=== PATIENT | female | born 1945 | race Caucasian/White ===

== ENCOUNTER 2017-02-23 14:09 | Inpatient (IN) | payer MEDICARE, OTHER ==
[~2017-02-23] VITALS: Ht 162.6 cm; Wt 97.7 kg
[2017-02-24] MEDS ORDERED: HYDR-3583 PO (11:07)
[2017-02-24] MEDS ORDERED: GLUC500C5 PO (11:07)
[2017-02-24] MEDS ORDERED: VITA10003 PO (11:07)
[2017-02-24] MEDS ORDERED: ASPI1TAB69 PO (11:07)
[2017-02-24] MEDS ORDERED: TIOT1AER INH (11:07)
[2017-02-24] MEDS ORDERED: MONT10TA4 PO (11:07)
[2017-02-24] MEDS ORDERED: DILT120T PO (11:07)
[2017-02-24] MEDS ORDERED: ZOLP10TA3 PO (11:07)
[2017-02-24] MEDS ORDERED: VENL75TA PO (11:07)
[2017-02-24] MEDS ORDERED: CLON0.5T PO (11:07)
[2017-02-24] MEDS ORDERED: GLIP-157 PO (11:07)
[2017-02-24] MEDS ORDERED: FOLI400T PO (11:07)
[2017-02-24] MEDS ORDERED: ATOR40TA16 PO (11:07)
[2017-02-24] MEDS ORDERED: CALCTAB54 PO (11:07)
[2017-02-24] MEDS ORDERED: LOSA100T PO (11:07)
[2017-02-24] MEDS ORDERED: OXYB5TAB10 PO (11:07)
[2017-03-03] MEDS ORDERED: LACTATED RINGER'S 1000 ML IV PRN (11:45)
[2017-03-03] MEDS ORDERED: INSULIN HUMAN REGULAR 1,000 UNITS/10 ML VIAL SQ PRN (11:45)
[2017-03-03] MEDS ORDERED: CHLORHEXIDINE GLUCONATE 2 % 1 PACK (2 CLOTHS) TOPICAL PRN (11:45)
[2017-03-03] MEDS ORDERED: POVIDONE IODINE 5% (ANTISEPSIS KIT) 4 APPLICATIONS EACH NARE PRN (11:45)
[2017-03-03] MEDS ORDERED: SODIUM CHLORID 0.9% 500 ML IV PRN (11:45)
[2017-03-03] MEDS ORDERED: METOPROLOL TARTRATE 25 MG TAB PO PRN (11:45)
[2017-03-03] MEDS ORDERED: NORMOSOL R INJ 2,000 ML IV ONE (12:00)
[2017-03-03] MEDS ORDERED: NITROGLYCERIN 1000 MCG/5 ML VIAL IV ONE (12:00)
[2017-03-03] MEDS ORDERED: fentaNYL CITRATE 250 MCG/5 ML AMP IV ONE (12:00)
[2017-03-03] MEDS ORDERED: ceFAZolin 2 GM PREMIX 50 ML IV SCH (12:00)
[2017-03-03] MEDS ORDERED: SODIUM CHLOR 0.9% 1000 ML INJ 1,000 ML IV SCH (12:00)
[2017-03-03] MEDS ORDERED: PROPOFOL 200 MG/20 ML AMP IV ONE (12:00)
[2017-03-03] MEDS ORDERED: METRONIDAZOLE 500 MG/100 ML ISONTONIC SOLN IV SCH (12:00)
[2017-03-03] MEDS ORDERED: ONDANSETRON HCL 4 MG/2 ML VIAL IV PUSH ONE (12:00)
[2017-03-03] MEDS ORDERED: SODIUM CHLORID 0.9% 500 ML INJ 1,000 ML IV ONE (12:00)
[2017-03-03 12:17] VITALS: BP 141/58; PULSE 70; RESP 18; TEMP 97.1; O2SAT 95
[2017-03-03] MEDS ORDERED: NALOXONE HCL 0.4 MG/ML AMP IV PRN (14:45)
[2017-03-03] MEDS ORDERED: ACETAMINOPHEN 325 MG TAB PO PRN (14:45)
[2017-03-03] MEDS ORDERED: Post-op Orders (for Pharmacy) MISC XX ONE (14:45)
[2017-03-03] MEDS ORDERED: POTASSIUM CHLOR 20 MEQ PREMIX 100 ML IV PRN (14:45)
[2017-03-03] MEDS ORDERED: ONDANSETRON HCL 4 MG/2 ML VIAL IV PRN (14:45)
[2017-03-03] MEDS ORDERED: PCA - TOTAL MG MORPHINE DELIVERED PER SHIFT SCH (14:45)
[2017-03-03] MEDS ORDERED: POTASSIUM CHLOR 40 MEQ PREMIX 100 ML IV PRN (14:45)
[2017-03-03] MEDS ORDERED: ENALAPRILAT 2.5 MG/2 ML VIAL IV PRN (14:45)
[2017-03-03] MEDS ORDERED: MORPHINE SULFATE 30 MG/30 ML PCA IV SCH (14:45)
[2017-03-03] MEDS ORDERED: BENZOCAINE 6 MG/MENTHOL 10 MG LOZENGE BUCCAL PRN (14:45)
[2017-03-03] MEDS ORDERED: ACETAMINOPHEN/HYDROcodone 325 MG/5 MG TAB PO PRN ×2 (14:45)
[2017-03-03] MEDS ORDERED: SODIUM CHLORIDE 0.9% FLUSH 5 ML FLUSH IVF PRN (14:45)
[2017-03-03] MEDS: SODIUM CHLORIDE 0.9% FLUSH 5 ML FLUSH IVF SCH ×2 (14:45→21:00)
[2017-03-03] MEDS ORDERED: ENALAPRILAT 1.25 MG/ML VIAL IV PRN (14:45)
[2017-03-03] MEDS ORDERED: RESP: ALBUTEROL 2.5 MG/IPRATROPIUM 0.5 MG NEB (SCH) ONE (15:23)
[2017-03-03] MEDS ORDERED: FAMOTIDINE 20 MG/2 ML VIAL ONE (15:24)
[2017-03-03] MEDS ORDERED: methylPREDNISolone SOD SUCC 125 MG/2 ML VIAL ONE (15:24)
[2017-03-03] MEDS ORDERED: MIDAZOLAM HCL 2 MG/2 ML VIAL ONE (15:40)
[2017-03-03] MEDS ORDERED: ACETAMINOPHEN 1000 MG/100 ML VIAL IV ONE (15:43)
[2017-03-03 17:49] LABS: BLOOD GAS BASE EXCESS 0.7 mmol/L (-2-2); BLOOD GAS HCO3 26 mmol/L (22-26); BLOOD GAS O2 HGB SATURATION 96 % (90-100); BLOOD GAS OXYGEN CONTENT 16.4 Vol % (12.0-20.0); BLOOD GAS PCO2 50 mmHg (38-42); BLOOD GAS PO2 137 mmHg (61-120); CRITICAL VALUE NO; OXYGEN DEVICE O.R. ABG; STAT YES; TEMP CORR TO 98.6
[2017-03-03 18:34] LABS: BICARBONATE 30.5 MEQ/L (21.0-32.0); POTASSIUM 3.5 MEQ/L (3.5-5.1)
[2017-03-03] MEDS ORDERED: ceFAZolin INJ 1,000 MG VIAL IV ONE (21:00)
[2017-03-03] MEDS ORDERED: SUGAMMADEX SODIUM 200 MG/2 ML VIAL IV PUSH ONE ×2 (21:24)
[2017-03-03] MEDS ORDERED: FUROSEMIDE 20 MG/2 ML VIAL ONE (21:57)
[2017-03-03] MEDS ORDERED: DO NOT ADM ANY ANTICOAGULANT DRUGS PRN (22:20)
[2017-03-03] MEDS: D5-NS + KCL 20 MEQ INJ 1,000 ML IV SCH (22:30)
[2017-03-03 22:35] VITALS: O2SAT 99
[2017-03-03] MEDS ORDERED: PROPOFOL 1000 MG/100 ML INJ 100 ML ONE (22:36)
[2017-03-03 22:58] LABS: AUTOMATED NEUTROPHIL # 14.8 TH/MM3 (1.8-7.7); HEMATOCRIT 34.3 % (35.0-46.0); HEMO FLAGS DIFF FINAL; LYMPH % 4.7 % (9.0-44.0); LYMPHOCYTE # 0.7 TH/MM3 (1.0-4.8); MEAN CELL VOLUME 83.9 FL (80.0-100.0); MEAN CORPUSCULAR HEMOGLOBIN 28.3 PG (27.0-34.0); MEAN CORPUSCULAR HGB CONC 33.8 % (32.0-36.0); MONO % 2.8 % (0.0-8.0); NEUT % 92.5 % (16.0-70.0); PLATELET COUNT 251 TH/MM3 (150-450); RED BLOOD COUNT 4.09 MIL/MM3 (4.00-5.30); RED CELL DISTRIBUTION WIDTH 14.8 % (11.6-17.2)
[2017-03-03 23:35] VITALS: O2SAT 97
[2017-03-04] VITALS (23 sets, daily range): BP systolic 101–148; BP diastolic 49–87; PULSE 70–94; RESP 14–20; TEMP 98.2–98.6; O2SAT 90–98
[2017-03-04] MEDS: metroNIDAZOLE 500 MG INJ 100 ML IV SCH ×3 (01:48→16:28)
[2017-03-04] MEDS: D5-NS + KCL 20 MEQ INJ 1,000 ML IV SCH ×3 (01:49→13:20)
[2017-03-04] MEDS: KETOROLAC TROMETHAMINE 30 MG/ML (IVP) VIAL IVP PRN ×2 (02:01→22:18)
[2017-03-04 04:56] LABS: AUTOMATED NEUTROPHIL # 12.3 TH/MM3 (1.8-7.7); HEMATOCRIT 32.3 % (35.0-46.0); HEMO FLAGS DIFF FINAL; LYMPH % 3.9 % (9.0-44.0); LYMPHOCYTE # 0.5 TH/MM3 (1.0-4.8); MEAN CELL VOLUME 84.4 FL (80.0-100.0); MEAN CORPUSCULAR HEMOGLOBIN 27.3 PG (27.0-34.0); MEAN CORPUSCULAR HGB CONC 32.3 % (32.0-36.0); MONO % 4.7 % (0.0-8.0); NEUT % 91.4 % (16.0-70.0); PLATELET COUNT 220 TH/MM3 (150-450); RED BLOOD COUNT 3.83 MIL/MM3 (4.00-5.30); RED CELL DISTRIBUTION WIDTH 14.5 % (11.6-17.2); WHITE BLOOD COUNT 13.5 TH/MM3 (4.0-11.0)
[2017-03-04 05:19] LABS: BICARBONATE 31.5 MEQ/L (21.0-32.0); POTASSIUM 3.9 MEQ/L (3.5-5.1)
--- NOTE | 2017-03-04 07:47 | HHI.PR ---
Subjective Remarks POD#1 s/p robotic left colectomy, cancer reports pain poorly controlled with morphine no nausea Objective Vital Signs Date Time Temp Pulse Resp B/P Pulse Ox O2 Delivery O2 Flow Rate FiO2 03/04/17 05:59 14 03/04/17 05:55 98.6 77 16 133/72 90 03/04/17 05:18 98.6 78 16 127/69 92 03/04/17 02:18 81 03/04/17 02:14 98.3 89 14 124/59 91 03/04/17 01:50 14 03/04/17 01:10 14 03/04/17 00:45 81 24 124/48 97 Nasal Cannula 3 03/04/17 00:15 80 20 128/56 96 Nasal Cannula 3 03/04/17 00:00 84 22 129/60 96 Nasal Cannula 3 03/03/17 23:45 83 20 117/53 98 Nasal Cannula 4 03/03/17 23:35 97 Nasal Cannula 4 03/03/17 23:30 79 20 146/65 98 Mechanical Ventilator 40 03/03/17 23:15 79 17 147/65 99 Mechanical Ventilator 40 03/03/17 23:00 79 19 148/70 99 Mechanical Ventilator 40 155/67 03/03/17 22:45 73 12 129/59 99 Mechanical Ventilator 40 154/59 03/03/17 22:45 40 03/03/17 22:35 99 40 03/03/17 22:35 50 03/03/17 22:32 97.7 80 10 140/60 100 Mechanical Ventilator 50 03/03/17 12:17 97.1 70 18 141/58 95 I/O 03/03/17 03/03/17 03/03/17 03/04/17 03/04/17 03/04/17 07:00 15:00 23:00 07:00 15:00 23:00 Intake Total 3500 ml 300 ml Output Total 450 ml 1000 ml Balance 3050 ml -700 ml Intake IV Total 300 ml Other 3500 ml Output Urine Total 1000 ml Estimated Blood Loss 150 ml Other 300 ml Result Diagram: 03/04/17 0338 03/04/17 033 Objective Remarks Coughing, nonproductive Abdomen soft, obese, tender Dressings c/d/i Assessment and Plan Assessment and Plan Stent removed Decrease IVF Mobilize change to DILAUDID composite engineer MOBILIZE Sharron Ramirez MD March 04, 2017 07:47
[2017-03-04] MEDS ORDERED: HYDROmorphone HCL PCA 6 MG/30 ML IV SCH (08:00)
[2017-03-04] MEDS ORDERED: NALOXONE HCL 0.4 MG/ML AMP IV PRN (08:00)
[2017-03-04] MEDS: SODIUM CHLORIDE 0.9% FLUSH 5 ML FLUSH IVF SCH ×2 (09:00→21:00)
[2017-03-04] MEDS: PANTOPRAZOLE SODIUM 40 MG VIAL IVP SCH (10:00)
[2017-03-04] MEDS ORDERED: SUGAMMADEX SODIUM 200 MG/2 ML VIAL IV PUSH ONE ×2 (12:06)
[2017-03-04] MEDS: PCA - TOTAL MG DILAUDID DELIVERED PER SHIFT OTHER SCH ×2 (13:25→22:00)
[2017-03-04] MEDS: HEPARIN SODIUM - SQ 10,000 UNITS/ML VIAL SQ SCH (22:18)
[2017-03-04] MEDS: diphenhydrAMINE HCL 50 MG/ML VIAL IV PRN (22:30)
[2017-03-05] VITALS (28 sets, daily range): BP systolic 122–174; BP diastolic 68–87; PULSE 74–102; RESP 14–18; TEMP 98.5–99.9; O2SAT 94–100
[2017-03-05] MEDS: D5-NS + KCL 20 MEQ INJ 1,000 ML IV SCH ×3 (03:35→14:10)
[2017-03-05] MEDS: PCA - TOTAL MG DILAUDID DELIVERED PER SHIFT OTHER SCH ×3 (06:00→21:20)
[2017-03-05] MEDS: SODIUM CHLORIDE 0.9% FLUSH 5 ML FLUSH IVF SCH ×2 (09:00→21:00)
[2017-03-05] MEDS: PNEUMOCOCCAL POLYVALENT INJ 25 MCG/0.5 ML SYR IM ONE ×2 (10:00→10:13)
[2017-03-05] MEDS: PANTOPRAZOLE SODIUM 40 MG VIAL IVP SCH (10:10)
[2017-03-05] MEDS: HEPARIN SODIUM - SQ 10,000 UNITS/ML VIAL SQ SCH ×2 (10:10→21:15)
--- NOTE | 2017-03-05 10:10 | MP ---
cc: JACK MORENO DATE OF SURGERY: 03/03/2017 PREOPERATIVE DIAGNOSIS: Colon cancer. POSTOPERATIVE DIAGNOSIS: Colon cancer with small bladder tumors identified on cystoscopic examination. One was located at the doom and the other one is on the left lateral wall. OPERATION: Cystoscopy with insertion of bilateral ureteral catheters with bladder biopsies of bladder tumors on the left lateral wall as well as the dome. SURGEON: Armando Moreno MD. ANESTHESIA: General endotracheal tube. FLUIDS: 100 cc Crystalloid BLOOD LOSS: None. COMPLICATIONS: None. The patient tolerated the procedure well. INDICATIONS FOR PROCEDURE: Ms. Hafsa Uribe is a 71 year-old female with a history of colon cancer and Dr. Ramirez scheduled her to undergo robotic resection of the colon mass. Request was made for bilateral ureteral catheter placement. DESCRIPTION OF PROCEDURE: The patient was brought to the operating room, identified by myself as Hafsa Uribe. She was placed in the dorsolithotomy position, prepped and draped in the usual sterile fashion, received preprocedure antibiotics, and general endotracheal tube anesthesia was administered. A 22-Serbian cystoscope was inserted in the bladder. There was a small bladder tumor, approximately 1 cm in size, identified on the left lateral wall. I was able to use a cold cup biopsy forceps and remove it. This area was then fulgurated with Bovie cautery. Turning the direction to the dome, there was a small bladder tumor approximately 1 cm in size, and it was grasped using the cold cup biopsy forceps and removed. This area was then fulgurated and each specimen was sent to pathology. The ureteral catheters were then placed. The left ureteral orifice was identified and the left ureteral catheter went up without difficulty. This was repeated on the right side without difficulty and the Dutton catheter was inserted. The patient tolerated the procedure well. She will need to follow up in the office in approximately a month after surgery to review the pathology, and in the future undergo further cystoscopic examination. Armando PERKINS/MATTIE /5:15 PM /9:42 AM
--- NOTE | 2017-03-05 10:11 | HHI.PR ---
Subjective Remarks POD#2 s/p robotic left colectomy, cancer still with significant pain, no nausea Objective Vital Signs Date Time Temp Pulse Resp B/P Pulse Ox O2 Delivery O2 Flow Rate FiO2 03/05/17 08:08 99.4 84 14 150/87 98 03/05/17 07:00 84 03/05/17 06:13 16 03/05/17 06:00 16 03/05/17 06:00 89 03/05/17 05:00 83 03/05/17 04:00 82 03/05/17 03:10 100 Bi-Pap 2.50 03/05/17 03:10 98.9 77 18 127/68 100 03/05/17 03:00 78 03/05/17 02:00 79 03/05/17 01:00 74 03/05/17 00:00 98 Bi-Pap 2.50 03/05/17 00:00 82 03/04/17 23:00 97 Nasal Cannula 2.50 03/04/17 23:00 98.5 84 18 148/75 97 03/04/17 23:00 94 03/04/17 22:00 18 03/04/17 22:00 90 03/04/17 22:00 18 03/04/17 21:00 82 03/04/17 20:00 82 03/04/17 19:47 95 Nasal Cannula 3.00 03/04/17 19:45 97 Nasal Cannula 2.50 03/04/17 19:45 98.3 76 18 126/87 98 03/04/17 19:00 78 03/04/17 16:00 76 03/04/17 15:00 98.2 77 18 131/74 92 03/04/17 14:00 76 03/04/17 13:59 16 03/04/17 13:29 16 03/04/17 13:25 16 03/04/17 13:00 84 03/04/17 12:00 82 03/04/17 11:59 94 Nasal Cannula 3.00 03/04/17 11:00 76 03/04/17 10:50 98.3 73 18 101/49 96 I/O 03/04/17 03/04/17 03/04/17 03/05/17 03/05/17 03/05/17 07:00 15:00 23:00 07:00 15:00 23:00 Intake Total 300 ml 2170 ml 1156 ml Output Total 1000 ml 450 ml 300 ml Balance -700 ml 1720 ml 856 ml Intake Oral 120 ml 120 ml IV Total 300 ml 2050 ml 1036 ml Output Urine Total 1000 ml 450 ml 300 ml # Bowel Movements 0 Result Diagram: 03/04/17 0338 03/04/17 0338 Objective Remarks Abdomen soft, obese, tender wounds clean Baer still with slight blood Assessment and Plan Assessment and Plan Continue baer D/C tele MOBILIZE decrease IVF Advance diet Sharron Ramirez MD March 05, 2017 10:11
[2017-03-05 10:45] LABS: AUTOMATED NEUTROPHIL # 8.1 TH/MM3 (1.8-7.7); BASOPHIL % 0.1 % (0.0-2.0); EOSINOPHIL # 0.1 TH/MM3 (0-0.4); EOSINOPHIL % 0.6 % (0.0-4.0); HEMATOCRIT 32.6 % (35.0-46.0); HEMO FLAGS DIFF FINAL; LYMPH % 10.5 % (9.0-44.0); LYMPHOCYTE # 1.1 TH/MM3 (1.0-4.8); MEAN CELL VOLUME 85.6 FL (80.0-100.0); MEAN CORPUSCULAR HEMOGLOBIN 27.9 PG (27.0-34.0); MEAN CORPUSCULAR HGB CONC 32.6 % (32.0-36.0); NEUT % 74.8 % (16.0-70.0); PLATELET COUNT 231 TH/MM3 (150-450); RED BLOOD COUNT 3.81 MIL/MM3 (4.00-5.30); RED CELL DISTRIBUTION WIDTH 15.3 % (11.6-17.2); WHITE BLOOD COUNT 10.9 TH/MM3 (4.0-11.0)
--- NOTE | 2017-03-05 14:22 | MP ---
cc: ROBERTA RAMIREZ M.D., DANNIE E. M.D. DATE OF SURGERY: 2016. PREOPERATIVE DIAGNOSIS: Sigmoid colon cancer. POSTOPERATIVE DIAGNOSIS: Descending colon cancer. OPERATIVE PROCEDURE PERFORMED: 1. Extensive laparoscopic lysis of adhesions. 2. Robotic descending colectomy. 3. Takedown of splenic flexure SURGEON: Roberta Ramirez M.D. ANESTHESIA: General per ET tube. ESTIMATED BLOOD LOSS Less than 100 mL. INDICATIONS FOR THE PROCEDURE: The patient is a 71-year-old female with a cancer reported to be in the sigmoid colon. OPERATIVE FINDINGS: Tumor in the mid-descending colon. No visible tumor noted in the liver, although this was not completely visualized, or in the remainder of the bowel. DESCRIPTION OF THE PROCEDURE IN DETAIL: The patient was brought to the operating room and placed in the supine position. After induction of general anesthesia, all bony prominences were carefully padded. The anterior abdominal wall, as well as the perineal area, was then prepped and draped in the usual sterile fashion. Dr. Moreno then came into the room and performed cystoscopy with placement of bilateral ureteral catheters. Of note, the patient did have two tiny bladder tumors that were removed by Dr. Moreno. Please see his operative notes for details. A site was then chosen for the camera, being located just to the left and above the umbilicus. A 10/12 trocar was placed at that location under direct vision using the laparoscope. CO2 insufflation was then undertaken and a brief abdominal survey was performed. The patient was noted have some adhesions of the omentum to the anterior abdominal wall, as well as on the lateral areas as well. This did not however preclude placement of our #10/12 port, just inside the right anterior superior iliac spine, and our assist port midway between the camera port and the #1 port. The patient was hydroplaned with head down and to the left. The tumor was immediately noted to be in the mid descending colon rather than the sigmoid colon. After takedown of all the adhesions using the electrocautery, I elected to proceed with a descending colectomy rather than a sigmoid colectomy, as an extended sigmoid colectomy which would have been necessary to remove the tumor would have necessitated taking out far too much bowel. With this, I planned the other port sites slightly differently. I put my #1 port, which was an 8 da Theo , just to the left of the suprapubic area, and my #2 port I placed in the epigastric area. This was a long #8 da Theo. The patient was hydroplaned slightly less and rotated to the right. The omentum was then carefully dissected free from the transverse mesocolon for the distal two-thirds of its length, opening up the lesser sac widely. The lateral attachments of the descending colon were then dissected free down to the level of the mid sigmoid, and well past the level of the tumor. This dissection continued up and around the splenic flexure, taking down the splenic flexure and eventually freeing up the distal transverse, descending and sigmoid colon. At that point, I felt I had adequate length to bring the transverse colon down to the proximal sigmoid, as it was quite mobile. A site was chosen for distal division of the tumor, approximately 8 to 10 cm distal to the tumor. The mesentery at this level was serially ligated using the harmonic scalpel, and the bowel was divided using the [place] Endostapler. A site was then chosen for proximal division of the bowel, above the left colic vessels. The mesentery at this level was then divided using the harmonic scalpel, and a reload of the [place] Endostapler was placed across the bowel at this level. The left colic vessels were then dissected out and divided using the harmonic scalpel and the remainder of the mesentery was serially divided using the harmonic scalpel. The specimen was then placed in the right lower quadrant for later retrieval. The transverse colon was then lined up [id number] with the proximal sigmoid colon, and lay in a nice orientation without too much tension. Three simple stay sutures were placed using 2-0 silk, one at the distal end of the planned anastomosis and the other two proximally, in the anterior and posterior positions. It was necessary to put an additional 10/12 port in the left lower quadrant to put the stapler in. Small incisions were made in antimesenteric corners of the proximal and distal bowel, and the stapler was then gently advanced through the mesenteric defects down each limb of the bowel. This was closed along the antimesenteric border, fired and removed, thus creating an enteroenterotomy. The resulting enterotomy was then closed transversely, using a reload of the [place] Endo stapler. The stapled edge was then removed and placed aside for later retrieval. Two simple stay sutures were placed at the distal end of the anastomosis to prevent tension on the anastomosis and the omentum was brought down and lay over the anastomosis. All dissection beds were examined and hemostasis was obtained with electrocautery. The robot was undocked. The laparoscope was then brought onto the field. All three 10/12 trocar sites were then closed using the crossbow closure device and #1 PDS. These were placed but not secured until the C02 insufflation was removed. The laparoscope was then removed. An 8 cm incision was made in the suprapubic area, incorporating the suprapubic port site. Using electrocautery, dissection was carried down to the fascia of the anterior abdominal wall, which was split the length of the skin incision. The medial fibers of the rectus abdominis muscle were then gently teased apart and the posterior fascia was incised the length of the anterior fascia. A wound protector was then placed and the specimen was then removed. It was taken to a back table where it was later opened and the cancer was confirmed. The posterior fascia of the anterior abdominal wall was closed in a running fashion using #1 PDS and the anterior fascia of the anterior abdominal wall was closed in running fashion using #1 PDS. The wounds were copiously irrigated with warm normal saline. The skin of the suprapubic incision was closed in a running subcuticular fashion with 3-0 Vicryl and the trocar sites were closed in interrupted fashion using 3-0 Vicryl. Steri-Strips and sterile dressing were applied. The right ureteral catheter was then removed. All sponge, instrument and needle counts were correct, and the patient was returned to the post anesthesia care unit in stable condition. MD VERONICA Flowers/BARAK /10:09 PM /2:05 PM MOON
[2017-03-05] MEDS: KETOROLAC TROMETHAMINE 30 MG/ML (IVP) VIAL IVP PRN (16:47)
[2017-03-05] MEDS: diphenhydrAMINE HCL 50 MG/ML VIAL IV PRN (21:20)
[2017-03-06] VITALS (9 sets, daily range): BP systolic 130–144; BP diastolic 74–80; PULSE 81–86; RESP 16–18; TEMP 98.3–99.5; O2SAT 95–100
[2017-03-06] MEDS: D5-NS + KCL 20 MEQ INJ 1,000 ML IV SCH (00:04)
[2017-03-06 05:08] LABS: AUTOMATED NEUTROPHIL # 5.4 TH/MM3 (1.8-7.7); BASOPHIL % 0.5 % (0.0-2.0); EOSINOPHIL # 0.1 TH/MM3 (0-0.4); EOSINOPHIL % 1.3 % (0.0-4.0); HEMATOCRIT 30.4 % (35.0-46.0); HEMO FLAGS DIFF FINAL; LYMPH % 13.7 % (9.0-44.0); LYMPHOCYTE # 1.1 TH/MM3 (1.0-4.8); MEAN CORPUSCULAR HEMOGLOBIN 27.9 PG (27.0-34.0); MEAN CORPUSCULAR HGB CONC 32.8 % (32.0-36.0); MONO % 16.4 % (0.0-8.0); NEUT % 68.1 % (16.0-70.0); PLATELET COUNT 165 TH/MM3 (150-450); RED BLOOD COUNT 3.58 MIL/MM3 (4.00-5.30); RED CELL DISTRIBUTION WIDTH 14.7 % (11.6-17.2); WHITE BLOOD COUNT 7.9 TH/MM3 (4.0-11.0)
[2017-03-06 05:21] LABS: BICARBONATE 29.2 MEQ/L (21.0-32.0); POTASSIUM 4.1 MEQ/L (3.5-5.1)
[2017-03-06] MEDS: PCA - TOTAL MG DILAUDID DELIVERED PER SHIFT OTHER SCH ×2 (05:34→15:45)
[2017-03-06] MEDS: SODIUM CHLORIDE 0.9% FLUSH 5 ML FLUSH IVF SCH ×2 (09:00→21:00)
[2017-03-06] MEDS: PANTOPRAZOLE SODIUM 40 MG VIAL IVP SCH (09:50)
[2017-03-06] MEDS: HEPARIN SODIUM - SQ 10,000 UNITS/ML VIAL SQ SCH ×2 (11:19→22:10)
--- NOTE | 2017-03-06 13:00 | HHI.PR ---
Subjective Patient symptoms today Pt seen and examined. Discussed findings with pt at time of cystoscopy. Path results pending. Objective Vital Signs Vital Signs Date Time Temp Pulse Resp B/P Pulse Ox O2 Delivery O2 Flow Rate FiO2 03/06/17 12:28 98.7 85 18 142/74 100 03/06/17 11:42 97 Nasal Cannula 3.00 03/06/17 09:36 97 Nasal Cannula 3.00 03/06/17 08:40 99.5 86 16 138/80 96 03/06/17 07:15 95 Nasal Cannula 3.00 03/06/17 06:00 16 03/06/17 05:34 16 03/06/17 03:30 98.3 81 16 130/80 98 03/06/17 03:30 98 Bi-Pap 3.00 03/05/17 23:45 98 Bi-Pap 3.00 03/05/17 23:45 98.5 79 18 122/78 98 03/05/17 22:00 16 03/05/17 21:20 18 03/05/17 19:50 98.7 90 16 174/70 98 03/05/17 19:50 97 Nasal Cannula 3.00 03/05/17 18:00 96 03/05/17 17:47 16 03/05/17 17:00 90 03/05/17 16:52 16 03/05/17 16:52 96 Nasal Cannula 3.00 03/05/17 16:28 95 Nasal Cannula 3.00 03/05/17 16:26 99.9 99 16 157/82 95 03/05/17 16:00 100 03/05/17 15:00 102 03/05/17 14:00 16 03/05/17 14:00 96 03/05/17 13:05 94 Nasal Cannula 3.00 03/05/17 13:00 88 Intake & Output 03/06/17 03/06/17 07:00 19:00 Intake Total 776 ml Output Total 900 ml Balance -124 ml Intake Oral 240 ml IV Total 536 ml Output Urine Total 900 ml # Bowel Movements 0 Result Diagram: 03/06/1742703/06/17427 Objective Remarks Abd: soft,nt,nd Dutton: urine clear Medications and IVs Current Medications Medications (Trade) Dose Ordered Sig/Nathan Route Start Time Stop Time Status Last Admin (D5-NS + KCl 20 Meq Inj) 1,000 ml @ 50 mls/hr Q20H IV 03/03/17 15:30 03/06/17 00:04 (NS Flush) 2 ml UNSCH PRN IVF 03/03/17 14:45 (NS Flush) 2 ml BID IVF 03/03/17 14:45 03/05/17 21:00 (Penrose 5-325 Mg) 1 tab Q6H PRN PO 03/03/17 14:45 (Penrose 5-325 Mg) 2 tab Q6H PRN PO 03/03/17 14:45 (Toradol Inj) 15 mg Q6H PRN IVP 03/03/17 14:45 03/06/17 14:44 03/05/17 16:47 (Tylenol) 650 mg Q4H PRN PO 03/03/17 14:45 (Protonix Inj) 40 mg DAILY IVP 03/04/17 09:00 03/06/17 09:50 (Zofran Inj) 4 mg Q6H PRN IV 03/03/17 14:45 (Vasotec Inj) 1.25 mg Q4H PRN IV 03/03/17 14:45 (Vasotec Inj) 2.5 mg Q6H PRN IV 03/03/17 14:45 Benzocaine/ Menthol 1 lozenge 1 lozenge UNSCH PRN BUCCAL 03/03/17 14:45 Potassium Chloride 100 ml @ 50 mls/hr UNSCH PRN IV 03/03/17 14:45 (KCl 40 Meq Premix Inj) 100 ml @ 25 mls/hr UNSCH PRN IV 03/03/17 14:45 (Heparin Inj) 5,000 units Q12H SQ 03/04/17 21:00 03/06/17 11:19 (Narcan Inj) 0.4 mg UNSCH PRN IV 03/03/17 14:45 (Benadryl Inj) 25 mg Q6H PRN IV 03/03/17 14:45 03/05/17 21:20 (Narcan Inj) 0.4 mg UNSCH PRN IV 03/04/17 08:00 (Dilaudid HORTICULT[employer] FARMWORKER Inj) 6 mg UNSCH IV 03/04/17 08:00 03/04/17 13:29 H[employer]ICULT[employer] FARMWORKER Dosage Infused (Pha) 1 Q8HR OTHER 03/04/17 14:00 03/06/17 05:34 Assessment and Plan Assessment and Plan 71 y.o female with findings of bladder tumor x 2 at time of cysto with b/l U- cath placement s/p robotic assisted colectomy Path pending F/U with urology as outpt for repeat office cysto. Armando Moreno DO March 06, 2017 12:59
--- NOTE | 2017-03-06 17:54 | HHI.PR ---
Subjective Remarks POD#3 s/p robotic left colectomy, cancer more comfortable Objective Vital Signs Date Time Temp Pulse Resp B/P Pulse Ox O2 Delivery O2 Flow Rate FiO2 03/06/17 16:05 100 Nasal Cannula 3.00 03/06/17 16:04 16 03/06/17 15:45 18 03/06/17 15:20 99.2 83 18 144/78 100 03/06/17 12:28 98.7 85 18 142/74 100 03/06/17 11:42 97 Nasal Cannula 3.00 03/06/17 09:36 97 Nasal Cannula 3.00 03/06/17 08:40 99.5 86 16 138/80 96 03/06/17 07:15 95 Nasal Cannula 3.00 03/06/17 06:00 16 03/06/17 05:34 16 03/06/17 03:30 98.3 81 16 130/80 98 03/06/17 03:30 98 Bi-Pap 3.00 03/05/17 23:45 98 Bi-Pap 3.00 03/05/17 23:45 98.5 79 18 122/78 98 03/05/17 22:00 16 03/05/17 21:20 18 03/05/17 19:50 98.7 90 16 174/70 98 03/05/17 19:50 97 Nasal Cannula 3.00 03/05/17 18:00 96 I/O 03/05/17 03/05/17 03/05/17 03/06/17 03/06/17 03/06/17 07:00 15:00 23:00 07:00 15:00 23:00 Intake Total 1156 ml 2037 ml 776 ml Output Total 300 ml 1500 ml 900 ml Balance 856 ml 537 ml -124 ml Intake Oral 120 ml 1200 ml 240 ml IV Total 1036 ml 837 ml 536 ml Output Urine Total 300 ml 1500 ml 900 ml # Bowel Movements 0 0 0 Result Diagram: 03/06/17 0428 03/06/17427 Objective Remarks Abdomen soft, obese, tender wounds clean Assessment and Plan Assessment and Plan d/c baer d/c IVF d/c HAND STAPLER Advance diet Discharge planning Sharron Ramirez MD March 06, 2017 17:54
[2017-03-07] MEDS ORDERED: FUROSEMIDE 40 MG/4 ML VIAL ONE (05:48)
[2017-03-07 07:28] VITALS: BP 128/64; PULSE 87; RESP 18; TEMP 97.6; O2SAT 94
[2017-03-07] MEDS: SODIUM CHLORIDE 0.9% FLUSH 5 ML FLUSH IVF SCH ×2 (09:00→21:00)
[2017-03-07] MEDS: PANTOPRAZOLE SODIUM 40 MG VIAL IVP SCH (09:02)
[2017-03-07] MEDS: HEPARIN SODIUM - SQ 10,000 UNITS/ML VIAL SQ SCH ×2 (09:02→21:48)
[2017-03-07] MEDS: FUROSEMIDE 20 MG/2 ML VIAL IV PUSH SCH ×2 (09:03→17:28)
--- NOTE | 2017-03-07 09:10 | HHI.PR ---
Subjective Remarks POD#4 s/p robotic left colectomy, cancer multiple complaints regarding nursing care, seems comfortable Objective Vital Signs Date Time Temp Pulse Resp B/P Pulse Ox O2 Delivery O2 Flow Rate FiO2 03/07/17 03:13 98 Nasal Cannula 3.00 03/06/17 23:19 99.0 86 18 137/79 96 03/06/17 23:17 95 Nasal Cannula 3.00 03/06/17 20:56 95 Nasal Cannula 3.00 03/06/17 20:56 99.0 85 18 142/80 95 03/06/17 16:05 100 Nasal Cannula 3.00 03/06/17 16:04 16 03/06/17 15:45 18 03/06/17 15:20 99.2 83 18 144/78 100 03/06/17 12:28 98.7 85 18 142/74 100 03/06/17 11:42 97 Nasal Cannula 3.00 03/06/17 09:36 97 Nasal Cannula 3.00 I/O 03/06/17 03/06/17 03/06/17 03/07/17 03/07/17 03/07/17 07:00 15:00 23:00 07:00 15:00 23:00 Intake Total 776 ml 1075 ml 240 ml Output Total 900 ml 650 ml Balance -124 ml 425 ml 240 ml Intake Oral 240 ml 875 ml 240 ml IV Total 536 ml 200 ml Output Urine Total 900 ml 650 ml # Voids 3 # Bowel Movements 0 1 2 Result Diagram: 03/06/17 0428 03/06/17 0428 Objective Remarks Abdomen soft, obese, tender wounds clean Assessment and Plan Assessment and Plan Transfer to [facility] Discharge planning Sharron Ramirez MD March 07, 2017 09:09
[2017-03-07 11:48] VITALS: BP 122/70; PULSE 96; RESP 18; TEMP 97.8; O2SAT 95
[2017-03-07 15:54] VITALS: BP 118/76; PULSE 93; RESP 18; TEMP 98.3; O2SAT 94
[2017-03-07 21:37] VITALS: O2SAT 94
[2017-03-07 21:42] VITALS: BP 148/76; PULSE 93; RESP 18; TEMP 98.3; O2SAT 97
[2017-03-08] VITALS: BP 152/80; PULSE 80; RESP 20; TEMP 98.4; O2SAT 99
--- NOTE | 2017-03-08 07:18 | HHI.PR ---
Subjective Remarks POD#5 s/p robotic left colectomy, cancer comfortable, breathing feels restricted, not getting her home inhaler Objective Vital Signs Date Time Temp Pulse Resp B/P Pulse Ox O2 Delivery O2 Flow Rate FiO2 03/08/17 00:00 98.4 80 20 152/80 99 03/07/17 23:25 Nasal Cannula 2.00 03/07/17 21:44 98 Nasal Cannula 3.00 03/07/17 21:42 98.3 93 18 148/76 97 03/07/17 21:37 94 Nasal Cannula 3.00 03/07/17 15:54 94 Nasal Cannula 3.00 03/07/17 15:54 98.3 93 18 118/76 94 03/07/17 11:48 97.8 96 18 122/70 95 03/07/17 11:48 95 Nasal Cannula 3.00 03/07/17 07:28 94 Nasal Cannula 3.00 03/07/17 07:28 97.6 87 18 128/64 94 I/O 03/07/17 03/07/17 03/07/17 03/08/17 03/08/17 03/08/17 07:00 15:00 23:00 07:00 15:00 23:00 Intake Total 240 ml 960 ml 380 ml Balance 240 ml 960 ml 380 ml Intake Oral 240 ml 960 ml 380 ml # Voids 3 4 3 # Bowel Movements 2 1 2 Result Diagram: 03/06/17 0428 03/06/17 0428 Objective Remarks Abdomen soft, obese, tender wounds clean Assessment and Plan Assessment and Plan Restart home meds, including inhaler D/C to rehab when available Sharron Ramirez MD March 08, 2017 07:18
[2017-03-08 08:00] VITALS: BP 126/78; PULSE 143; RESP 20; TEMP 97.3; O2SAT 96
[2017-03-08] MEDS: SODIUM CHLORIDE 0.9% FLUSH 5 ML FLUSH IVF SCH ×2 (09:00→21:00)
[2017-03-08] MEDS ORDERED: NON-FORMULARY DRUG (Glucosamine 500 MG) PO SCH (09:00)
[2017-03-08] MEDS ORDERED: TIOTROPIUM OLODATEROL INH SCH (09:00)
[2017-03-08] MEDS: LOSARTAN 50 MG TAB PO SCH (09:11)
[2017-03-08] MEDS: OXYBUTYNIN CHLORIDE 5 MG TAB PO SCH ×2 (09:12→20:57)
[2017-03-08] MEDS: VENLAFAXINE HCL XR 75 MG CAP PO SCH (09:15)
[2017-03-08] MEDS: FUROSEMIDE 20 MG/2 ML VIAL IV PUSH SCH ×2 (09:17→17:31)
[2017-03-08] MEDS: HEPARIN SODIUM - SQ 10,000 UNITS/ML VIAL SQ SCH ×2 (09:17→20:59)
[2017-03-08] MEDS: glipiZIDE 5 MG TAB PO SCH (09:32)
[2017-03-08] MEDS: PANTOPRAZOLE SODIUM 40 MG VIAL IVP SCH (09:32)
[2017-03-08] MEDS: DILTIAZEM HCL 60 MG TAB PO SCH ×2 (09:32→20:59)
[2017-03-08 12:00] VITALS: BP 126/78; PULSE 143; RESP 20; TEMP 97.3; O2SAT 96
[2017-03-08 13:59] VITALS: O2SAT 97
[2017-03-08 16:00] VITALS: BP 128/70; PULSE 65; RESP 18; TEMP 96.1; O2SAT 96
[2017-03-08 20:00] VITALS: BP 144/76; PULSE 88; RESP 21; TEMP 96.9; O2SAT 93
[2017-03-08] MEDS ORDERED: MONTELUKAST SODIUM 10 MG TAB PO SCH (21:00)
[2017-03-08] MEDS: diphenhydrAMINE HCL 50 MG/ML VIAL IV PRN (22:18)
[2017-03-09] VITALS: BP 138/80; PULSE 64; RESP 20; TEMP 97.3; O2SAT 93
[2017-03-09 08:00] VITALS: BP 138/74; PULSE 66; RESP 18; TEMP 96.4; O2SAT 95
[2017-03-09] MEDS: OXYBUTYNIN CHLORIDE 5 MG TAB PO SCH (08:58)
[2017-03-09] MEDS: DILTIAZEM HCL 60 MG TAB PO SCH (08:58)
[2017-03-09] MEDS: FUROSEMIDE 20 MG/2 ML VIAL IV PUSH SCH (08:59)
[2017-03-09] MEDS: VENLAFAXINE HCL XR 75 MG CAP PO SCH (08:59)
[2017-03-09] MEDS: PANTOPRAZOLE SODIUM 40 MG VIAL IVP SCH (08:59)
[2017-03-09] MEDS: LOSARTAN 50 MG TAB PO SCH (08:59)
[2017-03-09] MEDS: glipiZIDE 5 MG TAB PO SCH (08:59)
[2017-03-09] MEDS: SODIUM CHLORIDE 0.9% FLUSH 5 ML FLUSH IVF SCH (09:00)
[2017-03-09] MEDS: HEPARIN SODIUM - SQ 10,000 UNITS/ML VIAL SQ SCH (09:00)
--- NOTE | 2017-03-09 09:17 | HHI.PR ---
Subjective Patient symptoms today Pt seen and examined. Path reviewed from bladder bx-atypia Objective Vital Signs Vital Signs Date Time Temp Pulse Resp B/P Pulse Ox O2 Delivery O2 Flow Rate FiO2 03/09/17 08:00 96.4 66 18 138/74 95 03/09/17 00:00 97.3 64 20 138/80 93 03/08/17 20:54 93 Nasal Cannula 2.00 03/08/17 20:00 96.9 88 21 144/76 93 03/08/17 18:29 Nasal Cannula 2.00 03/08/17 16:00 96.1 65 18 128/70 96 03/08/17 13:59 97 Nasal Cannula 2.00 03/08/17 12:00 97.3 143 20 126/78 96 Intake & Output 03/09/17 03/09/17 07:00 19:00 Intake Total 560 ml Balance 560 ml Intake Oral 560 ml # Voids 5 # Bowel Movements 1 Result Diagram: 03/06/1742703/06/17427 Objective Remarks Abd: soft,nt,nd Dutton: urine clear 03/09 Abd:soft,nt,nd Urine clear Medications and IVs Current Medications Medications (Trade) Dose Ordered Sig/Nathan Route Start Time Stop Time Status Last Admin (NS Flush) 2 ml UNSCH PRN IVF 03/03/17 14:45 (NS Flush) 2 ml BID IVF 03/03/17 14:45 03/09/17 09:00 (Axtell 5-325 Mg) 1 tab Q6H PRN PO 03/03/17 14:45 03/06/17 22:12 (Axtell 5-325 Mg) 2 tab Q6H PRN PO 03/03/17 14:45 (Tylenol) 650 mg Q4H PRN PO 03/03/17 14:45 (Protonix Inj) 40 mg DAILY IVP 03/04/17 09:00 03/09/17 08:59 (Zofran Inj) 4 mg Q6H PRN IV 03/03/17 14:45 03/06/17 22:10 (Vasotec Inj) 1.25 mg Q4H PRN IV 03/03/17 14:45 (Vasotec Inj) 2.5 mg Q6H PRN IV 03/03/17 14:45 Benzocaine/ Menthol 1 lozenge 1 lozenge UNSCH PRN BUCCAL 03/03/17 14:45 Potassium Chloride 100 ml @ 50 mls/hr UNSCH PRN IV 03/03/17 14:45 (KCl 40 Meq Premix Inj) 100 ml @ 25 mls/hr UNSCH PRN IV 03/03/17 14:45 (Heparin Inj) 5,000 units Q12H SQ 03/04/17 21:00 03/09/17 09:00 (Benadryl Inj) 25 mg Q6H PRN IV 03/03/17 14:45 03/08/17 22:18 (Lasix Inj) 20 mg BID@09,18 IV PUSH 03/07/17 06:00 03/09/17 08:59 (Cozaar) 100 mg DAILY PO 03/08/17 09:00 03/09/17 08:59 (Singulair) 10 mg HS PO 03/08/17 21:00 03/08/17 20:59 (Ditropan) 5 mg Q12HR PO 03/08/17 09:00 03/09/17 08:58 (Cardizem) 120 mg BID PO 03/08/17 09:00 03/09/17 08:58 (Glucotrol) 5 mg DAILYAC PO 03/08/17 09:00 03/09/17 08:59 Patient Own Medication PT OWN MED: Tiotropium-Olodaterol Inh (Sti... DAILY INH 03/08/17 09:00 03/09/17 08:57 (Effexor Xr) 75 mg DAILY PO 03/08/17 09:00 03/09/17 08:59 Assessment and Plan Assessment and Plan 71 y.o female with findings of bladder tumor x 2 at time of cysto with b/l U- cath placement s/p robotic assisted colectomy Path pending F/U with urology as outpt for repeat office cysto. 03/09 71 y.o female with findings of bladder tumor x 2 at time of cysto with b/l U- cath placement s/p robotic assisted colectomy Path reviewed with pt To f/u in 3 months in office for cystoscopy. Armando Moreno DO March 09, 2017 09:17
[2017-03-09 09:48] VITALS: O2SAT 93
--- NOTE | 2017-03-10 22:59 | MD ---
cc: ROBERTA CERON M.D. ADMISSION DATE: 03/03/2017 DISCHARGE DATE: 03/09/2017 ADMISSION DIAGNOSIS 1. Descending colon cancer 2. Diabetes 3. COPD DISCHARGE DIAGNOSES 1. Descending colon cancer 2. Diabetes 3. COPD 4. Bladder tumor PROCEDURE 1. Cystoscopy with bilateral ureteral catheter placement and removal of tumor. 2. Laparoscopic extensive lysis of adhesions with robotic descending colectomy. HOSPITAL COURSE The patient is a 71-year-old female with a cancer that was initially believed to be in the sigmoid colon. She was admitted to the hospital on March 03, 2017 after an outpatient bowel prep. She was taken to the operating room where she underwent the above-named procedure. Intraoperative findings included two small tumors in the bladder which were removed by Dr. Moreno as well as a tumor in the mid descending colon. There was no visible tumor noted within the liver. Postoperatively, the patient did well with rapid return of bowel and bladder function. She was discharged to rehab on March 09, 2017 with instructions to follow up with myself in the office. Final pathology revealed T3 N0 colon cancer, poorly differentiated, and a papillary urothelial lesion with multifocal atypia in the bladder. MD VERONICA Flowers/ /10:28 AM /10:53 PM MTDD
== END 2017-03-09 14:47 | DRG 331 ==
LOC: HSDI 03-03 11:06 → EDUNIT# 03-03 13:00 → HCIS 03-04 00:59 → N07B 03-07 22:18
PROVIDERS: ADMIT Colon & Rectal Surgery; ATTEND Colon & Rectal Surgery
PROC: 0TBB8ZX Excision of Bladder, Via Natural or Artificial Opening Endoscopic, Diagnostic (ICD-10-PCS; 2017-03-03)
PROC: 0DNS4ZZ (ICD-10-PCS; 2017-03-03)
PROC: 0T9880Z Drainage of Bilateral Ureters with Drainage Device, Via Natural or Artificial Opening Endoscopic (ICD-10-PCS; 2017-03-03)
PROC: 8E0W4CZ Robotic Assisted Procedure of Trunk Region, Percutaneous Endoscopic Approach (ICD-10-PCS; 2017-03-03)
PROC: 0DTM4ZZ Resection of Descending Colon, Percutaneous Endoscopic Approach (ICD-10-PCS; principal; 2017-03-03 15:49)
PROC: 0DBN4ZZ Excision of Sigmoid Colon, Percutaneous Endoscopic Approach (ICD-10-PCS; 2017-03-03 15:49)
DX: C18.6 Malignant neoplasm of descending colon (principal); Z99.81 Dependence on supplemental oxygen; G62.9 Polyneuropathy, unspecified; J44.9 Chronic obstructive pulmonary disease, unspecified; I10 Essential (primary) hypertension; D41.4 Neoplasm of uncertain behavior of bladder; R60.0 Localized edema; K66.0 Peritoneal adhesions (postprocedural) (postinfection); E11.9 Type 2 diabetes mellitus without complications; Z53.29 Procedure and treatment not carried out because of patient's decision for other reasons; E66.9 Obesity, unspecified; Z68.37 Body mass index [BMI] 37.0-37.9, adult; Z79.84 Long term (current) use of oral hypoglycemic drugs; Z87.891 Personal history of nicotine dependence; Z88.2 Allergy status to sulfonamides; Z88.5 Allergy status to narcotic agent; Z96.651 Presence of right artificial knee joint
CPT/HCPCS: 76937; 80048; 82805; 85025; 86850; 86900; 86901; 88305; 88307; 88309; 90732; 94002; 94150; 94664; C1769; C9113; J0131; J0690; J1170; J1200; J1644; J1885; J1940; J2250; J2270; J2405; J2930; J3010; J3480; J7040; J7120

== ENCOUNTER → 2017-02-24 | Outpatient (CLI) | payer MEDICARE, OTHER ==
[~2017-02-24] MED LIST: ASPI1TAB69 PO; ATOR40TA16 PO; CALCTAB54 PO; CLON0.5T PO; DILT120T PO; FOLI400T PO; GLIP-157 PO; GLUC500C5 PO; HYDR-3583 PO; LOSA100T PO; MONT10TA4 PO; OXYB5TAB10 PO; TIOT1AER INH; VENL75TA PO; VITA10003 PO; ZOLP10TA3 PO
[2017-02-24 10:57] LABS: BASOPHIL % 0.2 % (0.0-2.0); EOSINOPHIL # 0.2 TH/MM3 (0-0.4); EOSINOPHIL % 3.2 % (0.0-4.0); HEMATOCRIT 34.5 % (35.0-46.0); HEMO FLAGS DIFF FINAL; LYMPH % 11.9 % (9.0-44.0); LYMPHOCYTE # 0.9 TH/MM3 (1.0-4.8); MEAN CELL VOLUME 83.7 FL (80.0-100.0); MEAN CORPUSCULAR HGB CONC 34.7 % (32.0-36.0); MONO % 6.5 % (0.0-8.0); NEUT % 78.2 % (16.0-70.0); PLATELET COUNT 218 TH/MM3 (150-450); RED BLOOD COUNT 4.12 MIL/MM3 (4.00-5.30); RED CELL DISTRIBUTION WIDTH 14.7 % (11.6-17.2); WHITE BLOOD COUNT 7.7 TH/MM3 (4.0-11.0)
[2017-02-24 11:16] LABS: PROTHROMBIN TIME - PATIENT 10.6 SEC (9.8-11.6)
[2017-02-24 11:20] LABS: ALT (GPT) 16 U/L (10-53); ANION GAP 7 MEQ/L (5-15); AST (GOT) 14 U/L (15-37); BICARBONATE 32.6 MEQ/L (21.0-32.0); BLOOD UREA NITROGEN 10 MG/DL (7-18); CHLORIDE 104 MEQ/L (98-107); GLOMERULAR FILTRATION RATE 122 ML/MIN (>89); GLUCOSE,FASTING 123 MG/DL (74-99); POTASSIUM 3.5 MEQ/L (3.5-5.1); SODIUM (NA) 144 MEQ/L (136-145)
[2017-02-24 11:23] LABS: ALKALINE PHOSPHATASE 87 U/L (45-117); TOTAL BILIRUBIN ADULT 0.5 MG/DL (0.2-1.0)
[2017-02-24 12:30] LABS: BACTERIA, URINE RARE /hpf; BLOOD, URINE NEG (NEG); COMMENT (UR) CULTURE INDICATED; CULTURE IF INDICATED CULTURE INDICATED; GLUCOSE,URINE NEG (NEG); KETONE, URINE NEG (NEG); NITRITE,URINE NEG (NEG); SQUAMOUS EPITHELIAL CELL URINE 5 /hpf (0-5); URINE COLOR YELLOW (YELLW/STRAW)
== END ==
LOC: CPRE 09:51
PROVIDERS: ATTEND Colon & Rectal Surgery
DX: Z01.812 Encounter for preprocedural laboratory examination (principal); C18.7 Malignant neoplasm of sigmoid colon; R82.99 Other abnormal findings in urine
CPT/HCPCS: 36415; 80053; 81001; 82378; 85025; 85610; 85730; 87086

== ENCOUNTER 2017-07-12 08:57 | Day surgery (SDC) | payer MEDICARE ==
[~2017-07-12] VITALS: Ht 162.6 cm; Wt 93.2 kg
[~2017-07-12 08:57] MED LIST changes: -ASPI1TAB69 PO; +ASPI81TA11 PO; -CALCTAB54 PO; -FOLI400T PO; -VITA10003 PO
[2017-07-12 09:26] VITALS: BP 185/93; PULSE 52; RESP 20; TEMP 97.8; O2SAT 91
[2017-07-12] MEDS ORDERED: METO50TA PO (09:37)
[2017-07-12] MEDS ORDERED: FOLI400T PO (09:37)
[2017-07-12] MEDS ORDERED: VITA1000 PO (09:37)
[2017-07-12] MEDS ORDERED: SODIUM CHLORIDE 0.9% 1000 ML IV SCH (09:45)
[2017-07-12 10:28] LABS: AUTOMATED NEUTROPHIL # 4.6 TH/MM3 (1.8-7.7); BASOPHIL % 0.4 % (0.0-2.0); EOSINOPHIL # 0.2 TH/MM3 (0-0.4); EOSINOPHIL % 2.9 % (0.0-4.0); HEMATOCRIT 33.7 % (35.0-46.0); HEMO FLAGS DIFF FINAL; LYMPH % 20.6 % (9.0-44.0); LYMPHOCYTE # 1.4 TH/MM3 (1.0-4.8); MEAN CELL VOLUME 82.1 FL (80.0-100.0); MEAN CORPUSCULAR HEMOGLOBIN 26.8 PG (27.0-34.0); MEAN CORPUSCULAR HGB CONC 32.6 % (32.0-36.0); MONO % 8.8 % (0.0-8.0); NEUT % 67.3 % (16.0-70.0); PLATELET COUNT 250 TH/MM3 (150-450); RED BLOOD COUNT 4.11 MIL/MM3 (4.00-5.30); RED CELL DISTRIBUTION WIDTH 16.4 % (11.6-17.2); WHITE BLOOD COUNT 6.8 TH/MM3 (4.0-11.0)
[2017-07-12 10:35] LABS: APTT (PATIENT) 28.9 SEC (24.3-30.1); PROTHROMBIN TIME - PATIENT 10.7 SEC (9.8-11.6)
[2017-07-12 11:30] VITALS: BP 159/81; PULSE 56; RESP 20; TEMP 98; O2SAT 94
--- NOTE | 2017-07-12 16:32 | RADRPT ---
EXAM DATE/TIME: 07/12/2017 11:20 [place] COMPARISON: No previous studies available for comparison. INDICATIONS : Abdominal wall abscess ORAL CONTRAST: No oral contrast ingested. RADIATION DOSE: 31.26 CTDIvol (mGy) MEDICAL HISTORY : Carcinoma, colon. SURGICAL HISTORY : None. ENCOUNTER: Initial ACUITY: 1 month PAIN SCALE: 0/10 LOCATION: abdomen TECHNIQUE: Volumetric scanning of the abdomen was performed. Using automated exposure control and adjustment of the mA and/or kV according to patient size, radiation dose was kept as low as reasonably achievable to obtain optimal diagnostic quality images. DICOM format image data is available electronically for review and comparison. FINDINGS: CT examination was performed to localize a large abdominal wall air and fluid collection noted on rec ent CT examination for possible drainage. The collection has nearly resolved in the interval currentl y measuring approximately 1.1 x 1.4 cm. There are no additional focal drainable fluid collection is n oted. Visualized portions of the kidneys are unremarkable without evidence for hydronephrosis. Visual ized portions of bowel again demonstrate postsurgical features in colon. No ascites. No free air. CONCLUSION: 1. Near interval resolution of previously noted large air and fluid collection in the anterior abdomi nal wall. Therefore, planned drainage procedure was not performed. Virgilio Beavers MD on July 12, 2017 at 16:24 Board Certified Radiologist. This report was verified electronically.
== END 2017-07-12 12:05 | disposition home or self-care (01) ==
LOC: HRAD 08:57 → HRIP 08:57 → HRAD 12:05
PROVIDERS: ATTEND Colon & Rectal Surgery
DX: L02.211 Cutaneous abscess of abdominal wall (principal); Z85.038 Personal history of other malignant neoplasm of large intestine; E11.9 Type 2 diabetes mellitus without complications; Z79.84 Long term (current) use of oral hypoglycemic drugs
CPT/HCPCS: 74150; 85025; 85610; 85730; G0463; 99211